=== PATIENT | female | born 1980 | race Caucasian/White ===

== ENCOUNTER 2017-10-25 13:17 | Emergency (ER) | payer BC, MEDICAID ==
[2017-10-25] MEDS ORDERED: Diphtheria,Pertussis(Acell),Tetanus Vaccine 0.5 ML SDV inactive IM ONE (14:19)
--- NOTE | 2017-10-25 17:44 | EDM.PDOC ---
ED HPI GENERAL MEDICAL PROBLEM - General Chief Complaint: Laceration Stated Complaint: LACERATION Time Seen by Provider: 10/25/17 13:45 Source of Information: Reports: Patient History Limitations: Reports: No Limitations - History of Present Illness INITIAL COMMENTS - FREE TEXT/NARRATIVE: This is a 37yo F with a laceration from scissors. She was cutting cardboard and slipped. The knife punctured the left hand and into the palm around the proxima first metacarpal. Patient notices some swelling and bruising. Onset: Sudden Duration: Hour(s): Location: Reports: Upper Extremity, Left Improves with: Reports: None Worsens with: Reports: None Social & Family History - Tobacco Use Smoking Status *Q: Current Every Day Smoker ED ROS GENERAL - Review of Systems Review Of Systems: ROS reveals no pertinent complaints other than HPI. ED EXAM, SKIN/RASH Exam: See Below Exam Limited By: No Limitations General Appearance: Alert, WD/WN, No Apparent Distress Eye Exam: Bilateral Eye: EOMI Ears: Normal External Exam Respiratory/Chest: No Respiratory Distress Cardiovascular: Normal Peripheral Pulses Peripheral Pulses: 2+: Radial (L), Radial (R) Skin: Wound/Incision, Other (bruising at the palm below the first metacarpal bone) ED SKIN PROCEDURES - Laceration/Wound Repair Left Hand Lac/Wound length In cm: 2 Appearance: Superficial, Clean Distal NVT: Neuro & Vascular Intact, No Tendon Injury Skin Prep: Providone-Iodine (Betadine), Saline Exploration/Debridement/Repair: Wound Explored, No Foreign Material Found Closed with: Steri-Strips (x2) Sterile Dressing Applied: Provider Tetanus Status Addressed: Yes Complications: No Progress/Comments: Applied triple ointment antibiotic, with non-stick gauze and then gauze wrap and coban wrap. Course - Vital Signs Last Recorded V/S: Last Vital Signs Temp 36.8 C 10/25/17 13:42 Pulse 85 10/25/17 13:42 Resp 16 10/25/17 13:42 BP 132/70 10/25/17 13:42 Pulse Ox 100 10/25/17 13:37 - Orders/Labs/Meds Orders: Active Orders 24 hr Category Date Time Status Vaccines to be Administered [RC] PER UNIT ROUTINE Care 10/25/17 14:20 Active Meds: Medications Discontinued Medications Generic Name Dose Route Start Last Admin Trade Name Freq PRN Reason Stop Dose Admin Diphtheria/Tetanus/Acell Pertussis 0.5 ml 10/25/17 14:19 10/25/17 14:21 Boostrix IM 10/25/17 14:20 0.5 ml .ONCE ONE Administration Departure - Departure Time of Disposition: 14:20 Disposition: Home, Self-Care 01 Condition: Good Clinical Impression: Puncture wound - Discharge Information Instructions: Stab Wound Forms: ED Department Discharge Care Plan Goals: Keep wound clean and dry. Watch for signs of infection. Return with any questions or concerns. - My Orders Last 24 Hours: My Active Orders 10/25/17 14:20 Vaccines to be Administered [RC] PER UNIT ROUTINE - Assessment/Plan Last 24 Hours: My Active Orders 10/25/17 14:20 Vaccines to be Administered [RC] PER UNIT ROUTINE
== END 2017-10-25 14:07 | disposition home or self-care (01) ==
LOC: LB.ED 13:17
DX: S61.432A Puncture wound without foreign body of left hand, initial encounter (principal); F17.210 Nicotine dependence, cigarettes, uncomplicated; Z23 Encounter for immunization; W26.0XXA Contact with knife, initial encounter
CPT/HCPCS: 90471; 90715; 99282-25

== ENCOUNTER 2022-08-31 10:44 | Emergency (ER) | payer MEDICAID ==
[2022-08-31] MEDS ORDERED: Orphenadrine 60 MG/2 ML Inj IM ONE (11:20)
[2022-08-31] MEDS ORDERED: diazePAM 5 MG/ML MDV IM ONE (11:21)
[2022-08-31] MEDS ORDERED: diazePAM 5 MG/ML MDV ONE (11:36)
[2022-08-31] MEDS ORDERED: Orphenadrine 60 MG/2 ML Inj ONE (11:37)
[2022-08-31] MEDS ORDERED: methylPREDNISolone Sodium Succinate 40 MG/1 ML SDV IVPUSH ONE (12:14)
[2022-08-31] MEDS ORDERED: methylPREDNISolone Sodium Succinate 40 MG/1 ML SDV ONE (12:33)
== END 2022-08-31 15:06 | disposition home or self-care (01) ==
LOC: LB.ED 10:44
DX: M54.12 Radiculopathy, cervical region (principal); Z79.899 Other long term (current) drug therapy; Z90.49 Acquired absence of other specified parts of digestive tract; W19.XXXA Unspecified fall, initial encounter
CPT/HCPCS: 72125; 93005; 96372; 96374; 99284; J2360; J2920; J3360; 93010; 99283